=== PATIENT | female | born 1985 | race Caucasian/White ===

== ENCOUNTER 2018-08-02 13:16 | Emergency (ER) | payer OTHER, SELFPAY ==
[2018-08-02 13:18] VITALS: BP 109/69; PULSE 69; PULSE 70; RESP 16; RESP 17; TEMP 36.3; O2SAT 98; O2SAT 99; BMI 24.8
--- NOTE | 2018-08-02 13:46 | ED.DCSUM_ITS ---
History of Present Illness Chief Complaint: Wound Detail of Chief Complaint: Burning weeping rash lower lip and chin Informant: Patient Onset: Weeks - Approximately 2 weeks ago Context: Sudden Onset Timing: Waxes and wanes Quality: Burning vesicular rash Location: Lower lip and chin Current Severity: Moderate Maximum Severity: Severe Worsened by: Touching the area and application of Bactroban Relieved by: Nothing Associated Symptoms: Diagnosed with cold sores. Narrative: Patient is a 33-year-old woman who presents with cold sores. She states onset 2 weeks ago. She states it got better. Symptoms got worse. She went to urgent care center and was prescribed antiviral medicine as well as Bactroban. The drainage and discomfort is worse after application of Bactroban. She denies fever, chills or night sweats. She is able to eat and drink. She has no other complaints. Prior similar symptoms: Yes Recent Illness/Hospitalization: Yes - Past Medical History (1) Cold sore Status: Acute Past Medical History - Allergies and Home Meds Allergies/Adverse Reactions: Allergies No Known Allergies Allergy (Verified 08/02/18 13:17) Primary Care Physician: Care Physician,No Primary [Primary Care Provider] - Prior records reviewed: No Past Medical History: None Surgical History: no surgical history Lives: Spouse/ Significant Other, With Family Smoking Status: Never smoker Alcohol: None Review of Systems General: Denies: Chills, Fever, Malaise, Sweats Eyes: Reports: - - No complaint of photophobia. Denies: Visual changes - bilaterally, Blurred Vision - bilaterally ENT: Denies: Bilateral ear pain, Sore throat Musculoskeletal: Denies: Myalgias, Arthralgias, Neck pain Skin: Reports: Rash, Wounds. Denies: Abscess, Abrasions Neurological: Denies: Headache Physical Exam Vital Signs/Narrative: Vital Signs Temp Pulse Resp BP Pulse Ox 08/02/18 13:18 97.3 F L 70 16 109/69 98 Inital Vital Signs reviewed: Yes General: Well nourished Head: Normocephalic, Atraumatic Eyes: Perrl, EOMI. Negative for: Pale conjunctiva, Scleral icterus, - ENT: Moist mucous membranes, No rhinorrhea, TM's clear, - - Herpetic lesions with evidence of contact dermatitis and cellulitis left chin region. There is one shotty submental node noted. Otherwise no lymphadenopathy. Neck: Supple, Nontender, No lymphadenopathy, No JVD, - - Trachea is midline. There is no stridor. There is no drooling. There is no dysphonia. Cardiovascular: Regular rate, Regular rhythm Respiratory: No distress Skin: Normal color, Rash - Herpetic lesions with evidence of contact dermatitis and cellulitis.. Negative for: Cyanosis, Diaphoresis, Jaundice Neurological: Alert, Oriented x3, Cranial nerves II-XII grossly intact, Normal Strength, Normal Sensation Psychological: Normal affect, Normal Mood Diagnostic/Tx/Re-eval - Medical Decision Making Patient with herpetic lesions lower lip and contact dermatitis secondary to Bact roban as well as cellulitis. Plan is to discontinue Bactroban and she was placed on Bactrim and cephalexin. ED Disposition - Plan for ED Patient: Disposition: Home or Assisted Living Diagnosis: HSV (herpes simplex virus) infection, Cellulitis of chin, Contact dermatitis due to drugs in contact with skin Instructions: ED Cellulitis Facial, ED Dermatitis Contact, ED Herpes Simplex Virus Type 1 Prescriptions: Cephalexin [Keflex] 500 mg PO Q8 #21 cap Smz/Tmp Ds [Bactrim Ds] 1 tab PO BID #14 tab Referrals: Care Physician,No Primary [Primary Care Provider] - 1 Week if not improving Additional Instructions: Discontinue using ointment. Do not dab your skin. Keep area dry.
== END 2018-08-02 14:16 | disposition home or self-care (01) ==
LOC: ED 14:13
PROVIDERS: Emergency Provider Emergency Medicine
DX: B00.9 Herpesviral infection, unspecified (principal); L03.211 Cellulitis of face; L25.1 Unspecified contact dermatitis due to drugs in contact with skin
CPT/HCPCS: 99282

== ENCOUNTER 2023-08-11 06:38 | Emergency (ER) | payer SELFPAY ==
[2023-08-11] VITALS (7 sets, daily range): BP systolic 97–161; BP diastolic 63–79; PULSE 67–88; RESP 16–24; TEMP 36.4–36.9; O2SAT 97–100; BMI 24.3
--- NOTE | 2023-08-11 07:06 | EX.ED.DYSGE1 ---
HPI History of Present Illness Chief Complaint: Fever [facility] Medical History (Updated 08/11/23 @ 06:44 by Jessica Dowell) Heart murmur Cardiomyopathy Home Medications ?Medication ?Instructions ?Recorded ?Last Taken ?Type metoclopramide HCl 5 mg tablet 5 mg PO Q8H PRN PRN headache 3 08/11/23 Unknown Rx (Reglan) days #12 tabs Allergy/AdvReac Type Severity Reaction Status Date / Time No Known Allergies Allergy Verified 08/11/23 06:43 Social History Smoking Status: Never smoker EXAM Physical Exam Const Vital Signs: 08/11/23 06:41 08/11/23 06:44 08/11/23 07:43 Temperature 97.6 F L 97.6 F L Temperature Source Oral Oral Pulse Rate 74 88 Respiratory Rate 24 H 18 Respiratory Effort Normal Non-Labored Respiratory Pattern Tachypnea Blood Pressure 132/76 H 123/77 H Blood Pressure Mean 94 92 Pulse Ox 100 98 Oxygen Delivery Method Room Air Room Air 08/11/23 08:00 08/11/23 10:00 08/11/23 11:00 Temperature 98 F 98.3 F 98.5 F Temperature Source Temporal Oral Temporal Pulse Rate 67 79 71 Respiratory Rate 18 20 H 19 H Respiratory Effort Respiratory Pattern Blood Pressure 97/76 110/79 105/63 Blood Pressure Mean 83 89 77 Pulse Ox 98 100 97 Oxygen Delivery Method Room Air Room Air Room Air 08/11/23 12:00 08/11/23 12:00 08/11/23 13:59 Temperature 97.6 F L 98.1 F Temperature Source Temporal Pulse Rate 69 69 71 Respiratory Rate 18 18 16 Respiratory Effort Respiratory Pattern Blood Pressure 161/70 H 161/70 H 98/72 Blood Pressure Mean 100 100 80 Pulse Ox 100 100 99 Oxygen Delivery Method Room Air Room Air MDM MDM MDM Narrative Medical decision making narrative: HISTORY OF PRESENT ILLNESS: 38-year-old female presents with concern for fever. Notes 4 days of headache, fever neck pain and stiffness. No sick contacts or recent illnesses, travel. She has not been on any congregate settings. Denies any personal medical issues. No she is been taking Tylenol and ibuprofen essentially every 6 hours. She denies any cough, rash, trouble urinating, ear pain, sore throat or any other infectious symptoms REVIEW OF SYSTEMS: Pertinent positives: Fever, headache, neck pain, nausea Pertinent negatives: Vomiting, rash, urinary complaints PHYSICAL EXAM: Nursing triage notes reviewed, Vital signs reviewed Constitutional: please see [facility] HENT: MMM Eyes: Pupils equal round and reactive to light, Extraocular muscles intact Neck: No stridor, no JVD, neck stiffness noted Lungs: Clear to auscultation, No wheezing or rales. No increased work of breathing, no conversational dyspnea, no accessory muscle use, no nasal flaring. No respiratory distress noted Heart: Regular rate and rhythm, No murmurs, No rubs and No gallops, 2+ distal pulses (radial, femoral, posterior tibial) in all extremities Abdomen: Soft, there is no tenderness, rigidity, rebound or guarding, no obvious peritoneal signs, no palpable pulsatile abdominal masses, no auscultated abdominal bruit : No CVAT Extremities: No edema Neuro: Alert and oriented x3, neuro exam at baseline, cranial nerves II through XII are intact. No pain with extraocular muscle movement. There is negative test of skew. 5 of 5 strength in upper and lower extremities in flexion extension. Intact sensation to light touch in upper and lower extremity dermatomes. No truncal or extremity ataxia. No dysdiadochokinesia. Normal gait. 2+ reflexes in upper and lower extremities. No meningeal signs. Negative Babinski. NIH of 0. Skin: No rash or lesions noted MEDICAL DECISION MAKING: Chief Complaint: Fever External records reviewed: Imaging reviewed: No recent adVanced imaging of the brain Factors affecting care: none Social determinants of health: none History obtained from others: none Consults: none [facility] Narrative: Patient was initially afebrile she is nontoxic-appearing. Patient was in distress however with no focus of neurologic deficit. I considered the following differential diagnosis: Viral illness, pneumonia, UTI, intra-abdominal infection, otitis media, pharyngitis, meningitis Patient's clinical appearance, initial vitals, neurologic exam or concerning I obtained a broad lab and imaging workup to further elucidate the etiology of the patient complaints Treatments IV fluids, antipyretics ALL IMAGES (IF OBTAINED) HAVE BEEN PERSONALLY REVIEWED AND INTERPRETED BY MYSELF. I have personally reviewed the patient's chest x-ray. Chest x-ray is unremarkable for pulmonary edema, pneumothorax, pneumonia or focal cardiopulmonary abnormality. CT scan of the brain is negative for ICH or mass CBC without leukocytosis, severe anemia, noted mild thrombocytopenia BMP with hyponatremia, hypokalemia, no evidence of endorgan hypoperfusion or metabolic acidosis, no CHANTE Urinalysis shows no evidence of urinary inflammation suggestive of UTI Urine test is negative There is no obvious source of infection on the scan lungs,urine, HEENT exam. Given headache and neck stiffness reported fever my primary concern shifted towards meningitis. She had a negative CT scan of the head. Risk and benefits of LP were discussed. Patient agreed with the risk to undergo the procedure. Please see procedure note. Procedure: Lumbar Puncture The procedure was performed by myself. Indication: Headache, fever, neck stiffness Risks and Benefits: The risks (including but not limited to pain, bleeding, infection and post-procedure headache) and benefits of lumbar puncture were discussed. Consent: Written consent obtained Time Out: Prior to lumbar puncture a time out with nursing was called. Preparation: The lumbar region was prepped and draped in standard bedside fashion. Procedure Description: Inserted under needle at approximately L4 interspace. Did not receive adequate CSF. Readjusted the patient, repeated landmarks and inserted at the L4 interspace with return of clear fluid. The CSF was collected and sent to the lab for analysis. The patient tolerated the procedure well without complications and my repeat neurovascular exam post-procedure is unchanged. The synthesis of the patient's history, physical exam, labs images suggest no acute life-limiting etiology specifically no signs of bacterial meningitis, ICH, viral illness such as COVID flu or RSV, no evidence of pneumonia or cellulitis on clinical exam or imaging. Patient is appropriate for discharge home with oral anti-inflammatories, strict return precautions. Will call patient based on culture results for HSV, LUIS virus, cryptococcal antigen, strep pneumo etc. The patient and/or family, caregivers express understanding. The patient and/or family, caregivers agrees with the plan. Shared decision making: I will have a discussion with the patient and or visitors regarding risk/benefits of further testing or admission. They will be made aware of of the risk/benefits inherent in this decision they will be given the opportunity to voice understanding. Total critical care time today provided was at least 0 minutes. This excludes separately billable procedures. Critical care time (if documented) is secondary to the patient having high probability of clinically significant/life threatening deterioration in the patient's condition which required my urgent intervention. Impression: 1. Headache 2. Fever 3. Viral illness Dispo: Discharge This note was generated with Dragon dictation software. It may contain incorrect words, spelling, and punctuation that were not noted in review of the chart prior to signing. Lab Data Labs: Laboratory Results - last 24 hr 08/11/23 08/11/23 08/11/23 07:08 08:35 11:05 WBC 4.9 RBC 4.33 Hgb 13.0 Hct 38.6 MCV 89.1 MCH 30.0 MCHC 33.7 RDW Std Deviation 40.5 RDW Coeff of Maricarmen 12.3 Plt Count 146 L MPV 11.4 Immature Gran % (Auto) 0.600 Neut % (Auto) 79.8 H Lymph % (Auto) 10.3 L Cole % (Auto) 8.7 Eos % (Auto) 0.2 Baso % (Auto) 0.4 Absolute Neuts (auto) 3.9 Absolute Lymphs (auto) 0.51 L Nucleated RBC % 0 Sodium 135 L Potassium 3.2 L Chloride 105 Carbon Dioxide 24.0 Anion Gap 6 BUN 6 L Creatinine 0.58 Estim Creat Clear Calc 118.34 Est GFR (MDRD) Af Amer 148 Est GFR (MDRD) Non-Af 122 BUN/Creatinine Ratio 10.3 Glucose 105 Calcium 8.8 Urine Color Yellow Urine Clarity Sl. Cloudy Urine pH 7.0 Ur Specific [place] 1.010 Urine Protein Negative Urine Glucose (UA) Normal Urine Ketones Negative Urine Occult Blood 10 H Urine Nitrite Negative Urine Bilirubin Negative Urine Urobilinogen 1 H Ur Leukocyte Esterase Negative Urine RBC 0-5 SEEN Urine WBC 0 SEEN Ur Squamous Epith Cells 0-5 SEEN Urine Bacteria 1+ Urine Mucus 0 SEEN Urine Test Negative CSF Appearance CLEAR CSF Color COLORLESS CSF WBC 0 CSF RBC 0 CSF Cell Count Tube # 3 CSF Total Cell Counted TNP CSF Neutrophils 0 CSF Lymphocytes 0 L CSF Monocytes 0 L CSF Eosinophils 0 CSF Other Cells 0 CSF Comment May follow CSF Glucose 55 CSF Total Protein 23.0 Radiography Diagnostic Testing: Clinical Impression(s) from Imaging Studies Brain CT 08/11/23 07:22 IMPRESSION: Normal unenhanced CT scan of the brain. Electronically Signed: Benoit Casas MD at 8:22 EDT , Chest X-Ray 08/11/23 07:23 IMPRESSION: Normal x-ray examination of the chest. Electronically Signed: Benoit Casas MD at 8:09 EDT , Discharge Plan Triage Chief Complaint: Fever ED Provider: Tan Carroll Dx/Rx/DC Orders Instructions: ED Fever Control (Adult), ED Headache, Tension Prescriptions: New metoclopramide HCl [Reglan] 5 mg tablet 5 mg PO Q8H PRN PRN (Reason: headache) 3 Days Qty: 12 0RF Primary Care Provider: Kel Armenta Referrals: Care Physician,No Primary [Non-Staff] - Activity Restrictions/Additional Instructions: Thank you for trusting us with your care today! Your clinical exam, labs images are not consistent with meningitis, or other emergent headache condition. The source of your fever is unclear. Please take Tylenol (2 pills, 650 mg), ibuprofen (2 pills, 400 mg) every 6 hours as needed for pain and fever control. Please return to the emergency department if your symptoms change or worsen. Please follow with your primary care physician for further outpatient evaluation and management. Print Language: Kazakh Disposition Disposition: Home, Self Care Discharge Date/Time: 08/11/23 14:22
--- NOTE | 2023-08-11 07:22 | CT_ITS ---
STUDY: CT BRAIN WITHOUT CONTRAST REASON FOR EXAM: Female, 38 years old. Headache RADIATION DOSAGE (If Supplied By Facility): CTDIvol = ( 44.99 ) mGy, DLP = ( 779.24 ) mGycm TECHNIQUE: Transaxial CT imaging of the brain was performed without administration of intravenous contrast material. Individualized dose optimization techniques were used for this CT. COMPARISON: No relevant priors. FINDINGS: Normal soft tissue structures. Normal calvarium. Normal size ventricles and extra-axial spaces for the patient''s age. Normal white matter tracts of the cerebral hemispheres. Normal basal ganglia and thalami. Normal brainstem. Normal cerebellum. There is no intracranial hemorrhage. There are no findings of an acute ischemic infarction. Normal visualized paranasal sinuses. CT/Brain/Head without Contrast IMPRESSION: Normal unenhanced CT scan of the brain. Electronically Signed: Benoit Casas MD at 8:22 EDT ,
--- NOTE | 2023-08-11 07:23 | RAD_ITS ---
STUDY: X-RAY CHEST REASON FOR EXAM: Female, 38 years old. Fever and headaches for 3 days. TECHNIQUE: PA and lateral views of the chest. COMPARISON: Comparison is made with prior study dated September 02, 2007. FINDINGS: EKG electrodes are seen. The lungs are clear and expanded. There is no demonstrated pleural abnormality. Normal size heart. Normal mediastinum and gianni. Normal visualized pulmonary arteries. Normal visualized aortic arch and descending thoracic aorta. Normal visualized thoracic spine. Normal visualized ribs, clavicles, and shoulders. There is no demonstrated abnormality of the visualized soft tissue structures of the upper abdomen. RAD/Chest PA and Lateral IMPRESSION: Normal x-ray examination of the chest. Electronically Signed: Benoit Casas MD at 8:09 EDT ,
[2023-08-11] MEDS: 0.9% Normal Saline (1000mL) 1,000 ML 1000 ML IV (07:37)
[2023-08-11] MEDS: Ondansetron 4 MG/2 ML Vial IV (07:37)
[2023-08-11 07:39] LABS: Absolute Lymphocyte Count 0.51 X10^3/uL (0.83-4.51); Absolute Neutrophil Count 3.9 X10^3/uL (2.0-7.7); Basophil# 0.02 X10^3/uL; Basophil% 0.4 % (0-1); Eosinophil# 0.01 X10^3/uL; Eosinophils% 0.2 % (0-5); Hematocrit 38.6 % (37-47); Lymphocyte # 0.51 X10^3/ul (0.83-4.51); Lymphocyte % 10.3 % (19-41); Mean Corp Hgb Conc 33.7 g/dL (32-36); Mean Corpuscular Volume 89.1 fL (81-99); Mean Platelet Vol. 11.4 fl (6.2-12.0); Monocyte# 0.43 X10^3/uL; Monocyte% 8.7 % (0-10); NRBC Flagged by Analyzer 0 % (0-5); Neutrophil # 3.93 X10^3/uL (2.7-7.7); Neutrophil % 79.8 % (47-70); POSITIVE DIFFERENTIAL YES; Platelet Count 146 K/mm3 (150-450); RBC Distribution Width CV 12.3 % (11.6-14.6); RBC Distribution Width SD 40.5 fl (35.1-43.9); Red Blood Count 4.33 M/mm3 (4.2-5.4); White Blood Count 4.9 K/mm3 (4.4-11.0)
[2023-08-11 07:48] LABS: Anion Gap 6 (5-15); BUN 6 mg/dL (7-18); BUN/Creat Ratio 10.3 RATIO (10-20); Calcium,Total 8.8 mg/dL (8.5-10.1); Chloride 105 mmol/L (98-107); Creatinine, Serum 0.58 mg/dL (0.55-1.02); EST Glomerular Filtration Rate 122 mL/min (>60); Est Glom Filt Rate - Afr Amer 148 mL/min (>60); Estimated Creatinine Clearance 118.34 ml/min; Glucose 105 mg/dL (74-106); Potassium 3.2 mmol/L (3.5-5.1); Sodium Level 135 mmol/L (136-145)
[2023-08-11 08:43] LABS: Mucous, Urine 0 SEEN /hpf (<or=2+); White Blood Cells 0 SEEN /hpf (0-5)
[2023-08-11 08:45] LABS: Color, Urine Yellow (Yellow); Glucose, Dipstick Normal (Normal); Ketone-Dipstick Negative (Negative); Leukocyte Esterase-Dipstick Negative /ul (Negative); Nitrite-Dipstick Negative (Negative); Occult Blood-Urine 10 /ul (Negative); Protein-Dipstick Negative (Negative); Urine Bilirubin Dipstick Negative (Negative); Urine Clarity Sl. Cloudy (Clear); Urine Urobilinogen 1 mg/dl (Normal)
[2023-08-11 08:53] LABS: Bacteria 1+ /hpf (None Seen); Internal QC Validated? YES +Cl - CLEAR BKGD; Pregnancy, Urine Negative Negative; Red Blood Cells-Urine 0-5 SEEN /hpf (0-5); Squamous Epithelial Cells - UA 0-5 SEEN /hpf (5-10)
[2023-08-11] MEDS: Ketorolac 15 MG/ML Vial IV ×2 (09:58→13:17)
[2023-08-11] MEDS: dexAMETHasone 10 MG/ML Vial 6 MG IV (09:59)
[2023-08-11] MEDS: Metoclopramide 10 MG/2 ML Vial 5 MG IV ×2 (09:59→13:17)
[2023-08-11] MEDS: Lidocaine 1% /Epi 1:100 (20ml) 20 ML Vial 5 ML INFILT (09:59)
--- NOTE | 2023-08-11 11:14 | CYSPIN_PTH ---
PATIENT: YIFAN RODRÍGUEZ LOC: ED U#:[id number] AGE/SX: 38/F ROOM: RE08/11/[address]: Dr. Tan Carroll DO : 1985 BED: DIS: 08/11/2023 SPEC #: [id number] RECD: 08/11/23 12:57 STATUS: NEMO RECaio #: [id number] CHHAYA: 08/11/23 11:[address]: Tan Carroll DEPT: CYTOLOGY RECD BY: Kaitlin Dupree ENTERED: 08/11/23 12:57 SP TYPE: CYSPIN FL OTHR DR: Dr. Kel Armenta DO Tissues: Cerebrospinal Fluid Procedures: Pap Stain (control) Special Stain Group II Cytospin Fluid HEADER OPERATION: Cerebral spinal fluid PRE-OP DIAGNOSIS: Fever TISSUE SUBMITTED: Cerebral spinal fluid for cytology DIAGNOSIS CYTOLOGY Cerebral spinal fluid for cytology (cytospin): Negative for malignant cells. See comment. Kirt 08/12/2023 COMMENT The specimen is virtually acellular. Clinical correlation is suggested. CYTOLOGY STUDY Slides are reviewed. CYTOLOGY GROSS Received is 1.0 ml of clear fluid labeled with the patient's name and and designated per the requisition as Cerebral spinal fluid. Submitted for cytology preparation including cell block. 08/11/23 TC:5 CPT: 64449
[2023-08-11 11:40] LABS: Cytology, Body Fluid / CSF SEE PATHOLOGY REPORT
[2023-08-11 12:08] LABS: Appearance CSF (character) CLEAR (Clear); CSF Color COLORLESS (Colorless); Tested Tube # 3
[2023-08-11 12:23] LABS: Glucose Spinal Fluid 55 mg/dL (40-75)
[2023-08-11 12:40] LABS: RBC Count, Spinal Fluid 0 /mm-3 (None seen); White Count, CSF 0 /mm-3 (0 - 5)
[2023-08-11 13:01] LABS: Body Fluid QC Type(s) BF1Q
[2023-08-11 13:04] LABS: Eosinophils,CSF 0 % (None seen); Lymphocytes,CSF 0 % (40 - 80); Monocytes,CSF 0 % (15 - 45); Neutrophils,CSF 0 % (0 - 6); Other Cells,CSF 0 %
[2023-08-12 08:49] LABS: Pathologist Review Reviewed
== END 2023-08-11 14:22 | disposition home or self-care (01) ==
PROVIDERS: Emergency Provider Emergency Medicine; PCP Family Medicine; Visit Provider Emergency Medicine
DX: R51.9 Headache, unspecified (principal); I42.9 Cardiomyopathy, unspecified; R50.9 Fever, unspecified; M54.2 Cervicalgia; B34.9 Viral infection, unspecified; E87.1 Hypo-osmolality and hyponatremia; E87.6 Hypokalemia; Z79.899 Other long term (current) drug therapy
CPT/HCPCS: 62270; 70450; 71046; 80048; 81001; 81025; 82945; 84157; 85025; 87070; 87205; 87449; 87529; 87631; 87798; 87899; 88108; 88313; 89050; 89051; 96361; 96374; 96375; 96376; 99283; J7030; A4216; J2405

== ENCOUNTER 2023-08-12 23:14 | Emergency (ER) | payer SELFPAY ==
[2023-08-12 23:14] VITALS: BP 122/69; PULSE 80; RESP 17; TEMP 36.4; O2SAT 100
[2023-08-12 23:58] VITALS: BMI 25.7
[2023-08-13] MEDS: Ondansetron 4 MG/2 ML Vial IV (00:05)
[2023-08-13] MEDS: DiphenhydrAMINE 50 MG/ML Syringe 25 MG IV (00:05)
[2023-08-13] MEDS: Morphine 4 MG/ML Syringe IV (00:06)
[2023-08-13] MEDS: 0.9% Normal Saline (1000mL) 1,000 ML 999 ML IV ×2 (00:06→01:07)
--- NOTE | 2023-08-13 01:25 | EDS_ITS ---
HPI History of Present Illness Chief Complaint: Headache Informant: patient and spouse/S.O. Narrative Narrative: Patient is a 38-year-old female who was seen in the ER yesterday. She presented complaining subjective fevers and neck stiffness. She underwent multiple testing including chest x-ray urine sample head CT and blood work which revealed no obvious findings. Because of her complaint of fever and neck stiffness meningitis was a possibility so a lumbar puncture was performed. Patient states that her symptoms have been overall controlled at home with Tylenol and/or Motrin. She states however that after the lumbar puncture her headache worsened and now she has been taking Tylenol Motrin without any symptom improvement. She states that there has been no trauma since the LP but as the headache is not being controlled with home medication she presents for evaluation [facility] Medical History (Updated 08/13/23 @ 04:[address] Bart Cornejo, DO) Heart murmur Cardiomyopathy Home Medications ?Medication ?Instructions ?Recorded ?Last Taken ?Type metoclopramide HCl 5 mg tablet 5 mg PO Q8H PRN PRN headache 3 08/11/23 Unknown Rx (Reglan) days #12 tabs gabapentin 300 mg capsule 300 mg PO TID 7 days #21 caps 08/13/23 Unknown Rx ondansetron 4 mg disintegrating 4 mg PO TID PRN nausea and 08/13/23 Unknown Rx tablet vomiting #21 tabs oxycodone-acetaminophen 5 mg-325 1 tab PO Q6H PRN pain 3 days #12 08/13/23 Unknown Rx mg tablet (Percocet) tabs Allergy/AdvReac Type Severity Reaction Status Date / Time No Known Allergies Allergy Verified 08/12/23 23:16 Social History Smoking Status: Never smoker ROS ROS ED Constitutional Constitutional ED: Denies chills or fever(s) Eyes Eyes: Reports other Details: Positive photophobia ; Denies blurry vision or diplopia ENT ENT ED: Denies sore throat Cardiovascular Cardiovascular: Denies chest pain Respiratory/Chest Respiratory/Chest: Denies cough or dyspnea Gastrointestinal Gastrointestinal: Reports nausea and vomiting; Denies abdominal pain or diarrhea Genitourinary Genitourinary ED: Denies dysuria Musculoskeletal Musculoskeletal: Reports back pain and neck pain Integumentary Denies rash Neurologic Neurologic: Reports headache(s); Denies paresthesias or weakness Hematologic/Lymphatic Hematologic/Lymphatic: Denies easy bleeding or easy bruising EXAM Physical Exam Const Vital Signs: 08/12/23 23:14 08/13/23 01:47 Temperature 97.6 F L 98 F Temperature Source Temporal Pulse Rate 80 63 Respiratory Rate 17 18 Blood Pressure 122/69 H 104/59 L Blood Pressure Mean 86 74 Pulse Ox 100 98 Oxygen Delivery Method Room Air Positive well nourished and well developed General Appearance ED: well developed HEENT HEENT Narrative: Normocephalic atraumatic Eyes PERRL and EOMs intact bilaterally Eyes Narrative: No pale macular noted No blood and thunder appearance present No obvious papilledema noted General Eye ED: Negative for pale conjunctiva or scleral icterus Neck supple Neck Narrative: No nuchal rigidity or meningeal signs noted Resp normal respiratory effort and clear to auscultation bilaterally Cardio regular rate and regular rhythm Rate: other Other Details: Heart is regular rate and rhythm without murmurs rubs or gallops GI non-tender, non-distended and no masses GI Narrative: Abdomen is soft nontender nondistended with hyperactive bowel sounds. No voluntary guarding or rigidity No pulsatile mass Auscultation: hyperactive bowel sounds Palpation: soft Back/Spine Back/Spine Narrative: No bony deformity or step-off of the thoracic or lumbar spine Patient has small puncture wounds in place over the lower lumbar spine consistent with a recent LP. These are clean dry and intact without secondary changes to suggest infection. Extremity normal to inspection Neuro oriented x3, CN's II-XII intact bilaterally and no sensory deficits noted Neuro Narrative: GCS of 15 Cranial nerves II through XII are grossly intact without focal neurologic deficit No pronator drift no dysmetria no truncal ataxia NIH stroke scale score of 0 Sensorium / Orientation: alert Motor Exam: strength 5/5 throughout Psych mental status grossly normal Skin no rashes or lesions noted Skin Narrative: Small puncture wound to the lower back/lumbar spine consistent with a recent LP without secondary findings to suggest infection MDM MDM MDM Narrative Medical decision making narrative: Patient presented to the ER with stable vitals and normal neurologic exam. She denies any recent trauma after returning home from her visit yesterday. Her previous lab work and imaging were reviewed. The patient has not had any growth of her lumbar puncture sample at 24 hours. Her physical exam does not suggest meningitis at this time. There is no signs of secondary infection at where the procedure occurred along the lumbar spine. Therefore do not feel there is need for repeat imaging or laboratory studies. The fact that the patient's headache worsened after the LP is most consistent with post lumbar puncture headache. T herefore she was given IV fluids morphine Zofran Benadryl and gabapentin. On reevaluation she reported improvement of her headache and reported feeling much better. Her vital signs remained stable and her neurologic exam normal. Therefore this time with improvement of the headache and stable vitals and normal neurologic exam I do not feel there is need for a blood patch at this time. Therefore patient will be prescribed symptomatic care and is otherwise safe for discharge History & Record Review Discussion w/independent historian: Patient and Significant other Discharge Plan Triage Chief Complaint: Headache ED Provider: Bart Cornejo Dx/Rx/DC Orders Clinical Impression: Post lumbar puncture headache, Viral illness, History of cardiomyopathy Instructions: ED Headache After Spinal Tap ... Prescriptions: New oxycodone-acetaminophen [Percocet] 5-325 mg tablet 1 tab PO Q6H PRN (Reason: pain) 3 Days Qty: 12 0RF gabapentin 300 mg capsule 300 mg PO TID 7 Days Qty: 21 0RF ondansetron 4 mg tablet,disintegrating 4 mg PO TID PRN (Reason: nausea and vomiting) Qty: 21 0RF No Action metoclopramide HCl [Reglan] 5 mg tablet 5 mg PO Q8H PRN PRN (Reason: headache) 3 Days Qty: 12 0RF Primary Care Provider: Kel Armenta Referrals: Kel Armenta DO [Primary Care Provider] - Activity Restrictions/Additional Instructions: Take the prescribed medications as directed to help control your headache and stay well-hydrated. If symptoms persist you may need a blood patch and therefore please return to the hospital for repeat evaluation. Print Language: Turkmen Disposition Disposition: Home, Self Care Discharge Date/Time: 08/13/23 01:48
[2023-08-13] MEDS: Gabapentin 300 MG Capsule PO (01:42)
[2023-08-13] MEDS: Oxycodone/Apap 5/325 Tablet PO (01:42)
[2023-08-13 01:47] VITALS: BP 104/59; PULSE 63; RESP 18; TEMP 36.6; O2SAT 98
== END 2023-08-13 01:48 | disposition home or self-care (01) ==
PROVIDERS: Emergency Provider Emergency Medicine; PCP Family Medicine; Visit Provider Emergency Medicine
DX: G97.1 Other reaction to spinal and lumbar puncture (principal); I42.9 Cardiomyopathy, unspecified; B34.9 Viral infection, unspecified; M43.6 Torticollis; R11.2 Nausea with vomiting, unspecified; M54.9 Dorsalgia, unspecified
CPT/HCPCS: 96361; 96374; 96375; 99284; J7030; J2405

== ENCOUNTER → 2024-03-18 | Outpatient (CLI) | payer SELFPAY ==
[2024-03-22 20:07] LABS: HPV APTIMA, High Risk Negative (Negative)
== END | disposition home or self-care (01) ==
LOC: LABSPEC 12:00
PROVIDERS: PCP Family Medicine; Referring Provider Nurse Practitioner Family; Visit Provider Nurse Practitioner Family
DX: Z12.4 Encounter for screening for malignant neoplasm of cervix (principal)